=== PATIENT | male | born 1930 | race Caucasian/White ===

== ENCOUNTER 2016-11-26 14:57 | Inpatient (IN) | payer MEDICARE ==
[~2016-11-26] VITALS: Ht 175.3 cm; Wt 57.2 kg
[~2016-11-26 14:57] MED LIST: AMIO200T6 PO; CARV3.12 PO; HYDR-3651 PO; LISI-603 PO; PANT40TA2 PO; SIMV20TA2 PO; ZOLP10TA2 PO
--- NOTE | 2016-11-26 15:30 | NUR ---
Pt BIB [facility], reports pt had mechanical fall at home, fell on left side, possible left hip fx, some rotation; pt has hx of right side hip replacement x 1 year ago. Pt c/o 09/05 when still, 02/02 upon moving, PMS intact in left leg. Pt also stated he has had falls every 6-8 weeks for a "while." No other complaints, no distress noted.
[2016-11-26 15:51] LABS: BASOPHILS % (AUTO) 0.3 % (0.0-2.0); EOSINOPHILS % (AUTO) 0.4 % (0.0-7.0); HEMATOCRIT 38.7 % (40-50); HEMOGLOBIN 12.7 G/DL (14.0-18.0); LYMPHOCYTES # (AUTO) 1.4 K/uL (20.0-40.0); MEAN CORPUSCULAR HEMOGLOBIN 30.4 UUG (27.0-31.0); MEAN CORPUSCULAR HGB CONC 33 g/dL (32.0-37.0); MEAN CORPUSCULAR VOLUME 92.5 FL (82.0-92.0); MONOCYTES # (AUTO) 0.7 K/uL (2.0-10.0); MONOCYTES % (AUTO) 6.7 % (0.0-11.0); NEUTROPHILS # (AUTO) 7.8 K/uL (1.8-8.9); NEUTROPHILS % (AUTO) 78.6 % (38.5-71.5); PLATELET COUNT (AUTO) 241 K/UL (150-450); RED BLOOD CELL COUNT(AUTO) 4.18 MIL/UL (4.7-6.1); RED CELL DISTRIBUTION WIDTH 13.5 % (11.5-14.5); WHITE BLOOD COUNT (AUTO) 9.9 K/UL (4.0-11.2)
[2016-11-26 15:52] LABS: CALCIUM 9.4 mg/dL (8.5-10.1); POTASSIUM 4.5 mmol/L (3.5-5.1)
[2016-11-26 15:55] LABS: CREATININE 1.4 mg/dL (0.6-1.3)
[2016-11-26] MEDS ORDERED: MORPHINE SULFATE 4 MG/1 ML DISP.SYRIN IV ONE (16:15)
[2016-11-26] MEDS ORDERED: MORPHINE SULFATE 4 MG/1 ML DISP.SYRIN ONE (16:41)
--- NOTE | 2016-11-26 16:44 | NUR ---
Please call: Shania Colmenares, daughter [phone]
[2016-11-26] MEDS ORDERED: CARV3.12 PO (16:57)
[2016-11-26] MEDS ORDERED: SPIR25TA4 PO (16:57)
[2016-11-26] MEDS ORDERED: TAMS-3 PO (16:57)
[2016-11-26] MEDS ORDERED: SIMV40TA5 PO (16:57)
[2016-11-26] MEDS ORDERED: FURO-151 PO (16:57)
--- NOTE | 2016-11-26 17:30 | NUR ---
Pt reports that he has 2/10 pain, when not moving
[2016-11-26] MEDS ORDERED: ONDANSETRON 4 MG/2 ML VIAL IV PRN (18:00)
[2016-11-26] MEDS ORDERED: ACETAMINOPHEN 650 MG SUPP.RECT RC PRN (18:00)
--- NOTE | 2016-11-26 18:31 | NUR ---
Called report to JAVAD Yepez.
[2016-11-26 19:00] VITALS: BP 124/69
--- NOTE | 2016-11-26 19:36 | NUR ---
RECEIVED PT IN ROOM IN NO ACUTE DISTRESS, NEW ADMIT. A/OX4, VERY PLEASANT, NO S/S RESPIRATORY DISTRESS NOTED/REPORTED. PT ON ROOM AIR. STATES PAIN IS BETTER, 6/10 IN THE PAIN SCALE, TOLERABLE AT THIS TIME PER PT'S REPORT. RECEIVED PAIN MED IN ER. VS ARE STABLE. ALL NEEDS ATTENDED AT THIS TIME. TRAPEZE BAR IN PLACE. DVT PUMPS ON. MADE COMFORTABLE. ALL NEEDS ATTENDED AT THIS TIME. WILL CONTINUE TO MONITOR.
[2016-11-26] MEDS: TAMSULOSIN HCL 0.4 MG CAP.SR.24H PO SCH (21:00)
[2016-11-26] MEDS: IV D5/ 0.9% NACL 1,000 ML IV PRN (21:54)
[2016-11-26] MEDS: NORMAL SALINE FLUSH 10 ML DISP.SYRIN IV SCH (21:57)
[2016-11-26] MEDS: MORPHINE SULFATE 2 MG/1 ML DISP.SYRIN IV PRN (22:02)
--- NOTE | 2016-11-26 23:00 | NUR ---
PT REFUSED 2100 FLOMAX, PER PT HAS NOT BEEN TAKING IT FOR A FEW DAYS, CALLED MD RAGSDALE, MADE AWARE, AND CLARIFICATION ORDER FOR BUCKS TRACTION RECEIVED WELL. ORDER FOR BUCKS TRACTION TO LEFT LEG WITH 5 LBS WEIGHT RECEIVED, NOTED AND CARRIED OUT. WILL CONTINUE TO MONITOR.
--- NOTE | 2016-11-26 23:06 | NUR ---
PT SEEN BY MD RAGSDALE.
[2016-11-27 04:00] VITALS: BP 107/64
[2016-11-27] MEDS: MORPHINE SULFATE 2 MG/1 ML DISP.SYRIN IV PRN ×2 (05:35→14:01)
[2016-11-27] MEDS: NORMAL SALINE FLUSH 10 ML DISP.SYRIN IV SCH ×3 (05:36→21:33)
--- NOTE | 2016-11-27 05:52 | NUR ---
PT IN BED RESTING COMFORTABLY, SLEPT WELL. NO ACUTE DISTRESS PER SHIFT. C/O L HIP PAIN MANAGED WITH PRN MORPHINE GIVEN PRESCRIBED X2, WITH GOOD RELIEF. BUCKS TRACTION IN PLACE. DVT PUMPS ON. ALL NEEDS MET. NPO AFTER MIDNIGHT. ON TELE: SR, SINUS TACHY PACING ON THE MONITOR, HR 94 AT THIS TIME. CALL LIGHT IN REACH. SAFETY MAINTAINED.
[2016-11-27 07:03] LABS: BASOPHILS % (AUTO) 0.3 % (0.0-2.0); EOSINOPHILS % (AUTO) 0.2 % (0.0-7.0); HEMATOCRIT 34.3 % (40-50); HEMOGLOBIN 11.7 G/DL (14.0-18.0); LYMPHOCYTES # (AUTO) 1.7 K/uL (20.0-40.0); LYMPHOCYTES % (AUTO) 18.9 % (20.5-51.5); MEAN CORPUSCULAR HEMOGLOBIN 31.5 UUG (27.0-31.0); MEAN CORPUSCULAR HGB CONC 34 g/dL (32.0-37.0); MONOCYTES # (AUTO) 0.7 K/uL (2.0-10.0); MONOCYTES % (AUTO) 8.1 % (0.0-11.0); NEUTROPHILS # (AUTO) 6.5 K/uL (1.8-8.9); NEUTROPHILS % (AUTO) 72.5 % (38.5-71.5); PLATELET COUNT (AUTO) 193 K/UL (150-450); RED BLOOD CELL COUNT(AUTO) 3.73 MIL/UL (4.7-6.1); RED CELL DISTRIBUTION WIDTH 13.4 % (11.5-14.5); WHITE BLOOD COUNT (AUTO) 8.9 K/UL (4.0-11.2)
[2016-11-27 07:15] LABS: THYROID STIMULATING HORMONE 0.967 mIU/mL (0.358-3.740)
[2016-11-27 07:28] LABS: ALBUMIN 2.8 g/dL (3.4-5.0); BILIRUBIN,TOTAL 0.5 mg/dL (0.2-1.0); CALCIUM 8.9 mg/dL (8.5-10.1); CREATININE 1.3 mg/dL (0.6-1.3); PHOSPHOROUS 3.7 mg/dL (2.5-4.9); POTASSIUM 4.1 mmol/L (3.5-5.1); TOTAL PROTEIN, SERUM 7.1 g/dL (6.4-8.2)
[2016-11-27 07:43] LABS: MAGNESIUM 1.8 mg/dL (1.8-2.4)
[2016-11-27 07:51] LABS: *BILIRUBIN,URIN NEGATIVE (NEGATIVE); *BLOOD, URINE 2+ (NEGATIVE); *CLARITY,URINE SLIGHTLY CLOUDY (CLEAR); *COLOR,URINE YELLOW (YELLOW); *KETONES,URINE NEGATIVE (NEGATIVE); *PROTEIN,URINE 1+ (NEGATIVE); *UROBILINOGEN,URINE 0.2 E.U./dl (NORMAL); LEUKOCYTE ESTERASE ,URINE NEGATIVE (NEGATIVE); NITRITE, URINE NEGATIVE (NEGATIVE); PH,URINE 5.5 (5.0-8.0); UGLUCOSE NEGATIVE (NEGATIVE)
--- NOTE | 2016-11-27 08:00 | NUR ---
PATIENT RECEIVED IN BED BED RESTING, NO S/S OF DISTRESS NOTED. DENIED PAIN AT THE MOMENT. DR. BATRES CAME TO SEE PT, SURGERY CANCELLED FOR TODAY, IT WILL BE DONE TOMORROW AT 09:00 AM, OR AWARE. CALLED DAUGHTER TO NOTIFIED ABOUT THE CHANGED. CARDIAC DIET WAS ORDERED. NO S/S OF ASPIRATION. SAFETY AND COMFORT PROVIDED. WILL CONTINUE MONITORING.
[2016-11-27 08:01] LABS: BACTERIA,URINE FEW /HPF (NONE SEEN); MUCUS,URINE MODERATE /LPF (0-FEW); RBC,URINE TNTC /HPF (0-3); SQUAMOUS EPITHELIAL CELL,UR FEW /HPF (NONE SEEN); WBC,URINE 0-3 /HPF (0-3)
[2016-11-27] MEDS ORDERED: PANTOPRAZOLE SODIUM 40 MG VIAL IV SCH (09:00)
[2016-11-27 11:48] VITALS: BP 111/59
[2016-11-27] MEDS: IV D5/ 0.9% NACL 1,000 ML IV PRN (14:02)
[2016-11-27 15:16] VITALS: BP 134/70
--- NOTE | 2016-11-27 17:56 | NUR ---
DR. COLLIER NOTIFIED ME THAT PACEMAKER NEED TO BE CHANGE BEFORE SURGERY, IT IS ALSO STATED IN HIS NOTED. . CALLED [facility] AND NO ONE ANSWER, THEY STATED TODAY IN THE AFTERNOON THAT PACEMAKER WILL BE CHANGED. NO ONE HAVE CAME TODAY. REPORT WILL BE ENDORSE TO THE NEXT SHIFT NURSE
[2016-11-27] MEDS ORDERED: CARVEDILOL 3.125 MG TABLET PO SCH (18:00)
[2016-11-27 20:00] VITALS: BP 115/62
[2016-11-27] MEDS: SIMVASTATIN 20 MG TABLET PO SCH (20:13)
[2016-11-27] MEDS: TAMSULOSIN HCL 0.4 MG CAP.SR.24H PO SCH (20:16)
--- NOTE | 2016-11-27 20:50 | NUR ---
RECEIVED PT IN BED RESTING, NO ACUTE DISTRESS NOTED. EASILY AWOKEN TO NAME. DENIES PAIN AT THE MOMENT. BUCKS TRACTION IN PLACE. F/C IN PLACE, DRAINING YELLOW URINE. PT STATES HAS BEEN HAVING "CRAMPS AND HICCUPS'" FROM THE PROTONIX GIVEN IN THE AM. PER PT HAD THAT MEDICATION FOR "THE STOMACH BEFORE BREAKFAST BEFORE AND IT MAKES MY STOMACH HURT, I DON'T WANT IT." MD RAGSDALE IN NURSING STATION, MADE AWARE, WITH NEW ORDER OF DC PROTONIX, NOTED AND CARRIED OUT. WILL CONTINUE TO MONITOR.
[2016-11-28] VITALS (11 sets, daily range): BP systolic 84–136; BP diastolic 47–75
[2016-11-28] MEDS: IV D5/ 0.9% NACL 1,000 ML IV PRN (03:39)
[2016-11-28] MEDS: NORMAL SALINE FLUSH 10 ML DISP.SYRIN IV SCH ×3 (05:23→21:46)
--- NOTE | 2016-11-28 06:50 | NUR ---
PT SLEPT WELL PER SHIFT. KEPT NPO AFTER MIDNIGHT. NO C/O PAIN. NO ONE HAD CAME FOR PPM SETTING CHANGE, PER REPORT. CALLED [facility] [phone] THIS AM, SPOKE TO VINI, STATED AWARE OF PATIENT'S CASE AND STATED WILL BE HERE BEFORE NINE. CALLED MD BATRES, MADE AWARE. CONSENT SIGNED AND PLACED IN CHART. ALL NEEDS MET. KEPT CLEAN AND DRY. CALL LIGHT IN REACH AND SAFETY MAINTAINED. MD CHOI IN ROOM WITH PATIENT AT THIS TIME.
[2016-11-28 06:59] LABS: CALCIUM 8.7 mg/dL (8.5-10.1); CREATININE 1.1 mg/dL (0.6-1.3); MAGNESIUM 1.7 mg/dL (1.8-2.4); POTASSIUM 3.4 mmol/L (3.5-5.1)
[2016-11-28 07:09] LABS: BASOPHILS % (AUTO) 0.2 % (0.0-2.0); EOSINOPHILS # (AUTO) 0.1 K/uL (0.0-0.7); EOSINOPHILS % (AUTO) 0.7 % (0.0-7.0); HEMATOCRIT 31.8 % (40-50); HEMOGLOBIN 11.1 G/DL (14.0-18.0); LYMPHOCYTES # (AUTO) 1.2 K/uL (20.0-40.0); LYMPHOCYTES % (AUTO) 11.3 % (20.5-51.5); MEAN CORPUSCULAR HEMOGLOBIN 32.2 UUG (27.0-31.0); MEAN CORPUSCULAR HGB CONC 35 g/dL (32.0-37.0); MEAN CORPUSCULAR VOLUME 92.2 FL (82.0-92.0); MONOCYTES # (AUTO) 0.7 K/uL (2.0-10.0); MONOCYTES % (AUTO) 6.2 % (0.0-11.0); NEUTROPHILS # (AUTO) 8.8 K/uL (1.8-8.9); NEUTROPHILS % (AUTO) 81.6 % (38.5-71.5); PLATELET COUNT (AUTO) 181 K/UL (150-450); RED BLOOD CELL COUNT(AUTO) 3.45 MIL/UL (4.7-6.1); RED CELL DISTRIBUTION WIDTH 13.3 % (11.5-14.5); WHITE BLOOD COUNT (AUTO) 10.8 K/UL (4.0-11.2)
[2016-11-28] MEDS ORDERED: POLYMYXIN B SULFATE 500,000 UNITS, BACITRACIN 50,000 UNITS, NORMAL SALINE 20 ML MC ONE ×3 (07:45)
[2016-11-28] MEDS: CARVEDILOL 3.125 MG TABLET PO SCH ×2 (07:56→18:00)
--- NOTE | 2016-11-28 08:00 | NUR ---
awake alert, oriented, hard of hearing, kept npo for OR today, on room air, Tele SR with frequent pvcs, bucks tx 5 lbs on left leg, dvt pump on right leg, denies of pain at this time, explained plan of care- verbalized understanding, call [facility] levy, bed alarm on
--- NOTE | 2016-11-28 09:15 | NUR ---
taken to OR per bed, daughter with him
[2016-11-28] MEDS ORDERED: FENTANYL CITRATE 100 MCG/2 ML AMPUL ONE ×2 (09:49→13:24)
[2016-11-28] MEDS ORDERED: ROCURONIUM BROMIDE 50 MG/5 ML VIAL ONE (09:49)
[2016-11-28] MEDS ORDERED: PROPOFOL 200 MG/20 ML BOTTLE IV ONE (10:44)
[2016-11-28] MEDS ORDERED: ONDANSETRON 4 MG/2 ML VIAL IV ONE (10:44)
[2016-11-28] MEDS ORDERED: IV NORMAL SALINE 1000 ML BAG IV ONE (10:44)
[2016-11-28] MEDS ORDERED: EPHEDRINE SULFATE 50 MG/ML AMPUL MC ONE (10:44)
[2016-11-28] MEDS ORDERED: SEVOFLURANE 250 ML BOTTLE IH ONE (10:44)
[2016-11-28] MEDS ORDERED: CEFAZOLIN 1 G VIAL MC ONE (10:44)
[2016-11-28] MEDS ORDERED: DEXAMETHASONE SOD PHOSPHATE 4 MG INJ IV ONE (10:44)
[2016-11-28] MEDS ORDERED: KETOROLAC TROMETHAMINE 30 MG INJ IM ONE (10:44)
[2016-11-28] MEDS ORDERED: LIDOCAINE HCL 1% 20 ML VIAL MC ONE (10:44)
--- NOTE | 2016-11-28 14:30 | NUR ---
back from RR, awake alert and oriented. tele v paced 70, on 3l/nc with sat 100%, vs taken, left hip dsg dry and intact, ice pack on, palpable pedal pulse on left foot, bed alarm on, family at bedside, call lite within reach, will continue to monitor
[2016-11-28] MEDS: MAGNESIUM SULFATE/D5W 100 ML IV SCH ×2 (14:35→15:32)
--- NOTE | 2016-11-28 15:00 | NUR ---
vs monitored closely, remain stable, no bleeding noted, tele v paced 70, denies of pain, dozing on and off
[2016-11-28] MEDS ORDERED: KETOROLAC TROMETHAMINE 30 MG INJ IVP PRN (15:15)
--- NOTE | 2016-11-28 16:00 | NUR ---
incentive spirometry come- level 1000ml, still dozing on and off, vs monitored, juice provided
[2016-11-28] MEDS: POTASSIUM CHLORIDE 50 ML IV SCH ×2 (16:44→17:57)
[2016-11-28] MEDS: ASPIRIN EC 325 MG TABLET.DR PO SCH (17:57)
--- NOTE | 2016-11-28 18:00 | NUR ---
more awake, incontinent of small BM- washed and kept clean and dry, repositioned q2h, called daughter to bring dentures so he can have dinner- took juice and apple sauce, repositioned q 2h, left hip dsg dry and intact, abduction pillow in place, pulse on left foot palpable, toes warm and able to wiggle toes well, pt alert/oriented x 4, denies of left hip pain, c/o pain on iv site due to iv potassium ( 2nd bag) - changed to po.
[2016-11-28] MEDS: CEFAZOLIN 1 G in PREMIXED 1 EACH IV SCH (18:19)
[2016-11-28] MEDS ORDERED: POTASSIUM CHLORIDE 10 MEQ CAPSULE.SA PO ONE (18:30)
--- NOTE | 2016-11-28 18:48 | NUR ---
daughter brought dentures, pt eating dinner now, all needs attended and met, safety measures maintained, call light within reach
--- NOTE | 2016-11-28 19:15 | NUR ---
PATIENT ALERT ORIENTED, LEFT HIP DRESSING INTACT, NO BLEEDING NOTED, SKIN WARM AND DRY TO TOUCH, PULSE PALPABLE ON LEFT FOOT, PATE CATH PATENT, DRAINING WITH YELLOW COLOR URINE IN MODERATE AMOUNT, NO COMPLAIN OF PAIN AT THIS TIME. ABDUCTION PILLOW IN PLACE, USING SCENTIVE SPIROTEMER EVERY HOUR, NO S/S OF DISTRESS.
[2016-11-28] MEDS: TAMSULOSIN HCL 0.4 MG CAP.SR.24H PO SCH (20:51)
[2016-11-28] MEDS: SIMVASTATIN 20 MG TABLET PO SCH (20:51)
[2016-11-29 00:34] VITALS: BP 96/50
[2016-11-29] MEDS: IV D5/ 0.9% NACL 1,000 ML IV PRN (02:42)
[2016-11-29] MEDS: CEFAZOLIN 1 G in PREMIXED 1 EACH IV SCH (03:20)
[2016-11-29] MEDS: HYDROCODONE/APAP 5-325MG TABLET PO PRN (03:42)
[2016-11-29 04:00] VITALS: BP 92/46
--- NOTE | 2016-11-29 05:34 | NUR ---
PATIENT AWAKE, VERBALLY RESPONSIVE, COMPLAIN OF PAIN OF LEFT HIP, GIVEN PAIN MEDS WITH HELP AFTER ONE HOURS, PATE CATH PATENT DRAINING WITH YELLOW COLOR URINE IN MODERATE AMOUNT. ABDUCTION PILLOW IN PLACE, USES INCENTIVE SPIROMETER WHILE AWAKE, NO SOB NO CHEST PAIN NOTED, RYTHM IS PACING, TURN REPOSITION ON RIGHT SIDE, AND BACK ONLY, NO S/S DISTRESS.
[2016-11-29] MEDS: NORMAL SALINE FLUSH 10 ML DISP.SYRIN IV SCH ×2 (06:26→14:03)
[2016-11-29 07:14] LABS: ALBUMIN 2.2 g/dL (3.4-5.0); BASOPHILS % (AUTO) 0.1 % (0.0-2.0); BILIRUBIN,TOTAL 0.3 mg/dL (0.2-1.0); CALCIUM 8.2 mg/dL (8.5-10.1); CREATININE 1.2 mg/dL (0.6-1.3); EOSINOPHILS # (AUTO) 0.1 K/uL (0.0-0.7); EOSINOPHILS % (AUTO) 0.7 % (0.0-7.0); LYMPHOCYTES # (AUTO) 1.2 K/uL (20.0-40.0); LYMPHOCYTES % (AUTO) 13.8 % (20.5-51.5); MAGNESIUM 2.3 mg/dL (1.8-2.4); MEAN CORPUSCULAR HEMOGLOBIN 32.2 UUG (27.0-31.0); MEAN CORPUSCULAR HGB CONC 35 g/dL (32.0-37.0); MEAN CORPUSCULAR VOLUME 91.6 FL (82.0-92.0); MONOCYTES # (AUTO) 0.7 K/uL (2.0-10.0); MONOCYTES % (AUTO) 8.4 % (0.0-11.0); NEUTROPHILS # (AUTO) 6.8 K/uL (1.8-8.9); PHOSPHOROUS 2.1 mg/dL (2.5-4.9); PLATELET COUNT (AUTO) 161 K/UL (150-450); POTASSIUM 5.3 mmol/L (3.5-5.1); RED CELL DISTRIBUTION WIDTH 13.2 % (11.5-14.5); TOTAL PROTEIN, SERUM 5.8 g/dL (6.4-8.2); WHITE BLOOD COUNT (AUTO) 8.8 K/UL (4.0-11.2)
[2016-11-29 07:21] LABS: HEMOGLOBIN 9.2 G/DL (14.0-18.0); RED BLOOD CELL COUNT(AUTO) 2.86 MIL/UL (4.7-6.1)
[2016-11-29 07:22] LABS: HEMATOCRIT 26.2 % (40-50)
[2016-11-29] MEDS: CARVEDILOL 3.125 MG TABLET PO SCH ×2 (08:00→17:29)
[2016-11-29] MEDS: ASPIRIN EC 325 MG TABLET.DR PO SCH ×2 (08:25→17:22)
[2016-11-29 12:00] VITALS: BP 101/50
[2016-11-29 15:09] VITALS: BP 104/47
[2016-11-29] MEDS ORDERED: NEUTRA PHOS PACKET PO ONE (16:15)
--- NOTE | 2016-11-29 18:23 | NUR ---
PATIENT BEEN IN RESTING AND SLEEPING INTERMITTENTLY DURING THE DAY. NO S/S OF DISTRESS NOTED. DENIED PAIN DURING MY SHIFT. DRESSING STILL INTACT, NO REDNESS OR DRAINAGE NOTED AROUND THE WOUND. ICE WAS PROVIDED FOR COMFORT. ABDUCTION PILLOW IN PLACE. EDUCATE AND ENCOURAGE TO USE INCENTIVE SPIROMETER, VERBALIZED UNDERSTANDING AND RETURN DEMONSTRATION. IV INTACT. FC STILL INTACT AND DRAINING WELL. COOPERATIVE WITH INTERVENTIONS. CALL LIGHT WITHIN AT REACH. SAFETY AND COMFORT PROVIDED. WILL CONTINUE MONITORING.
--- NOTE | 2016-11-29 19:15 | NUR ---
ALERT ORIENTED, ABLE TO MAKE NEEDS KNOWN, LEFT HIP DRESSING INTACT, ABDUCTION PILLOW IN PLACE, REMINDED THE PATIENT TO USE THE INCENTIVE SPIROMETER, PATIENT USE SPIROMETER WHILE AWAKE, OXYGEN SAT WNL, ON ROOM AIR, NO SOB NO CHEST PAIN NOTED. PEDAL PULSE PRESENT ON BOTH LEGS, CONT TO MONITOR.
[2016-11-29 20:00] VITALS: BP 113/59
[2016-11-29] MEDS: SIMVASTATIN 20 MG TABLET PO SCH (20:02)
[2016-11-29] MEDS: TAMSULOSIN HCL 0.4 MG CAP.SR.24H PO SCH (20:03)
[2016-11-30] VITALS (8 sets, daily range): BP systolic 99–113; BP diastolic 45–60
[2016-11-30] MEDS: NORMAL SALINE FLUSH 10 ML DISP.SYRIN IV SCH ×4 (00:41→21:11)
--- NOTE | 2016-11-30 05:49 | NUR ---
PATIENT SLEPT MOST OF THE NIGHT, NO SOB NO CHEST PAIN NOTED, ABDUCTION PILLOW IN PLACE, BILATERAL PEDAL PULSE PRESENT, SKIN WARM AND DRY, DRESSING INTACT ON LEFT HIP, NO COMPLAINS OF PAIN AT THIS TIME. CONT TO MONITOR.
[2016-11-30 07:13] LABS: BASOPHILS % (AUTO) 0.5 % (0.0-2.0); EOSINOPHILS # (AUTO) 0.1 K/uL (0.0-0.7); EOSINOPHILS % (AUTO) 1.9 % (0.0-7.0); HEMATOCRIT 24.4 % (40-50); HEMOGLOBIN 8.6 G/DL (14.0-18.0); LYMPHOCYTES # (AUTO) 1.3 K/uL (20.0-40.0); LYMPHOCYTES % (AUTO) 17.5 % (20.5-51.5); MEAN CORPUSCULAR HEMOGLOBIN 32.2 UUG (27.0-31.0); MEAN CORPUSCULAR HGB CONC 35 g/dL (32.0-37.0); MONOCYTES # (AUTO) 0.6 K/uL (2.0-10.0); MONOCYTES % (AUTO) 8.5 % (0.0-11.0); NEUTROPHILS # (AUTO) 5.5 K/uL (1.8-8.9); NEUTROPHILS % (AUTO) 71.6 % (38.5-71.5); PLATELET COUNT (AUTO) 154 K/UL (150-450); RED BLOOD CELL COUNT(AUTO) 2.66 MIL/UL (4.7-6.1); RED CELL DISTRIBUTION WIDTH 13.2 % (11.5-14.5); WHITE BLOOD COUNT (AUTO) 7.5 K/UL (4.0-11.2)
[2016-11-30 07:55] LABS: CALCIUM 7.9 mg/dL (8.5-10.1); CREATININE 1.1 mg/dL (0.6-1.3); MAGNESIUM 1.7 mg/dL (1.8-2.4); POTASSIUM 4.4 mmol/L (3.5-5.1)
[2016-11-30] MEDS: ASPIRIN EC 325 MG TABLET.DR PO SCH ×2 (08:18→17:12)
[2016-11-30] MEDS: CARVEDILOL 3.125 MG TABLET PO SCH ×2 (08:20→17:12)
[2016-11-30] MEDS: KETOROLAC TROMETHAMINE 15 MG INJ IVP PRN ×2 (11:36→18:41)
[2016-11-30] MEDS ORDERED: MAGNESIUM OXIDE 400 MG TABLET PO ONE (11:45)
[2016-11-30] MEDS ORDERED: NEUTRA PHOS PACKET PO ONE (11:45)
[2016-11-30] MEDS ORDERED: BISACODYL 10 MG SUPP.RECT RC ONE (12:30)
[2016-11-30] MEDS ORDERED: BISACODYL 10 MG SUPP.RECT RC PRN (12:30)
--- NOTE | 2016-11-30 16:04 | NUR ---
Spoke to the patient's granddaughter, Shania Colmenares [ ], about his discharge plan and informed her that Dr. Antonio recommended for [facility] so that he is able to follow-up but she refused. She stated that she wants for him to go to [facility] because she was there in the past. She also stated that if need be, she will see another Ortho. Spoke to Shanae from [facility] [ ; [id number] [place] [address]] and she confirmed that they will be able to admit the patient once stable. Shania was very thankful. CM/SW will follow-up.
--- NOTE | 2016-11-30 18:00 | NUR ---
PATIENT WAS MEDICATED FOR SEVERE PAIN ON THE LEFT HIP,SURGICAL INCISION. ASSESSED AREA, NO REDNESS AND NOT TENDER TO TOUCH. PHYSICAL THERAPIST WORKED WITH PATIENT, PT NOTIFIED ME THAT PATIENT WAS LIGHT HEADED DURING ACTIVITY, AND WAS NOT ABLE TO AMBULATE. HE SAT AT THE CHAIR FOR 2 HOURS, PATIENT SEEMED EXHAUSTED. PATIENT C/O OF CONSTIPATION, SUPPOSITORY WAS ADMINISTERED. BLOOD COUNT HAS DROPPED, ONE UNIT OF PRBC WAS ORDERED BY DR LERNER. THE UNIT WAS ADMINISTERED, VERIFIED WITH BUTCH, CHARGE NURSE. NO S/S OF ACUTE DISTRESS OR REACTION DURING TRANSFUSION AT 1540, V/S WNL. PATIENT NOW IS SLEEPING, REFUSING TO EAT DINNER STATING HE IS TIRED AND WANTS TO SLEEP. UNIT OF BLOOD STILL INFUSING, WILL CONTINUE MONITORING FOR ANY REACTION, OR ACUTE DISTRESS. SAFETY AND COMFORT PROVIDED BY STAFF DURING THE DAY.
--- NOTE | 2016-11-30 19:15 | NUR ---
TRANSFUSION ENDED. NO S/S OF DISTRESS NOTED. V/S WNL. REPORT GIVEN TO RN.
--- NOTE | 2016-11-30 19:45 | NUR ---
PATIENT RECEIVED IN BED RESTING COMFORTABLY, VITAL SIGNS WNL. PT IS AOX2 BUT CONFUSED AND DISORIENTED AT TIMES. HEP LOCK IN RIGHT HAND, INTACT AND FLUSHED. DENIES ANY PHYSICAL DISCOMFORT AT THIS TIME. DRESSING NOTED TO LEFT HIP, INTACT. PATE CATHETER IN PLACE, URINE YELLOW AND COLOR. NO ACUTE DISTRESS NOTED. BED IN LOW AND LOCKED POSITION. SAFETY MEASURES MAINTAINED.
[2016-11-30] MEDS: TAMSULOSIN HCL 0.4 MG CAP.SR.24H PO SCH (21:11)
[2016-11-30] MEDS: SIMVASTATIN 20 MG TABLET PO SCH (21:11)
--- NOTE | 2016-11-30 23:00 | NUR ---
PT IN BED RESTING COMFORTABLY. TOLERATED MEDICATIONS WELL PO AT BEDTIME. DENIES ANY PAIN AT THIS TIME. TURNED IN BED EVERY 2 HOURS. PT REFUSED MEDICATION FOR SLEEP. NO ACUTE DISTRESS NOTED. WILL CONTINUE TO MONITOR FOR SAFETY.
--- NOTE | 2016-12-01 03:14 | NUR ---
PT SLEEPING IN BED AT THIS TIME. NO ACUTE DISTRESS NOTED. WILL CONTINUE TO MONITOR FOR SAFETY.
[2016-12-01 04:37] VITALS: BP 111/56
[2016-12-01] MEDS: NORMAL SALINE FLUSH 10 ML DISP.SYRIN IV SCH ×3 (06:04→21:23)
--- NOTE | 2016-12-01 06:17 | NUR ---
PATIENT AWAKE RESTING COMFORTABLY IN BED. HEP LOCK IN RIGHT HAND INTACT AND FLUSHED ORDERED. PATE CATHETER IS PATENT, OUTPUT IS 450CC THIS MORNING. NO ACUTE DISTRESS NOTED. SAFETY MEASURES MAINTAINED.
[2016-12-01 06:54] LABS: BASOPHILS % (AUTO) 0.4 % (0.0-2.0); EOSINOPHILS # (AUTO) 0.1 K/uL (0.0-0.7); EOSINOPHILS % (AUTO) 1.5 % (0.0-7.0); LYMPHOCYTES # (AUTO) 1.5 K/uL (20.0-40.0); LYMPHOCYTES % (AUTO) 18.5 % (20.5-51.5); MEAN CORPUSCULAR HEMOGLOBIN 31.4 UUG (27.0-31.0); MEAN CORPUSCULAR HGB CONC 34 g/dL (32.0-37.0); MEAN CORPUSCULAR VOLUME 91.2 FL (82.0-92.0); MONOCYTES # (AUTO) 0.6 K/uL (2.0-10.0); MONOCYTES % (AUTO) 7.9 % (0.0-11.0); NEUTROPHILS # (AUTO) 5.6 K/uL (1.8-8.9); NEUTROPHILS % (AUTO) 71.7 % (38.5-71.5); PLATELET COUNT (AUTO) 169 K/UL (150-450); RED CELL DISTRIBUTION WIDTH 13.8 % (11.5-14.5); WHITE BLOOD COUNT (AUTO) 7.8 K/UL (4.0-11.2)
[2016-12-01 07:10] LABS: HEMATOCRIT 29.2 % (40-50); HEMOGLOBIN 10.1 G/DL (14.0-18.0)
[2016-12-01 07:35] LABS: ALBUMIN 2.1 g/dL (3.4-5.0); BILIRUBIN,TOTAL 0.5 mg/dL (0.2-1.0); CALCIUM 8.3 mg/dL (8.5-10.1); CREATININE 0.9 mg/dL (0.6-1.3); MAGNESIUM 2.1 mg/dL (1.8-2.4); PHOSPHOROUS 2.9 mg/dL (2.5-4.9); POTASSIUM 4.4 mmol/L (3.5-5.1)
[2016-12-01] MEDS: CARVEDILOL 3.125 MG TABLET PO SCH ×2 (08:36→17:09)
[2016-12-01] MEDS: ASPIRIN EC 325 MG TABLET.DR PO SCH ×2 (08:36→17:08)
--- NOTE | 2016-12-01 10:00 | NUR ---
PATIENT SEEN BY THE PHYSICAL THERAPY FOR AMBULATION BUT PATIENT WAS ABLE TO STAND AND SEATED ON THE CHAIR NEXT TO HIS BED AND THEN ASSISTED BACK INTO BED.
[2016-12-01] MEDS ORDERED: TAMSULOSIN HCL 0.4 MG CAP.SR.24H PO ONE (10:16)
[2016-12-01 11:49] VITALS: BP 107/56
--- NOTE | 2016-12-01 12:00 | NUR ---
PATE CATHETER REMOVED,DRESSING CHANGED TO HIS LEFT HIP LEYLA ARE INTACT AT THIS TIME.URINAL GIVEN AND PATIENT INSTRUCTED ON THE USE AND HE EXPRESSED UNDERSTANDING.
--- NOTE | 2016-12-01 15:00 | NUR ---
PATIENT IS VOIDING USING THE URINAL ADEQUATE AMOUNT.
[2016-12-01] MEDS ORDERED: CALC-555 PO (15:48)
[2016-12-01] MEDS ORDERED: DOCU-25 PO (15:48)
[2016-12-01] MEDS ORDERED: BISA10SU12 RC (15:48)
[2016-12-01] MEDS ORDERED: FURO-152 PO (15:48)
[2016-12-01] MEDS ORDERED: SIMV10TA6 PO (15:48)
[2016-12-01] MEDS ORDERED: HYDR-3326 PO (15:48)
[2016-12-01] MEDS ORDERED: TAMS-3 PO (15:48)
[2016-12-01] MEDS ORDERED: ASPI-610 PO (15:48)
--- NOTE | 2016-12-01 16:02 | NUR ---
PATIENT IS FOR DISCHARGE TO [facility] TODAY FAMILY AWARE AWAITING FOR DR GORDON TO COMPLETE THE DISCHARGE IN THE [facility]
[2016-12-01 16:08] VITALS: BP 107/57
--- NOTE | 2016-12-01 17:57 | NUR ---
CALLED [facility] TO GIVE REPORT SPOKE WITH ARNALDO AND SHE STATED THAT THEY DO NOT HAVE A MALE BED AND WILL BE UNABLE TO TAKE THE PATIENT TODAY THE PADDED BOX SEWER AWARE AND HE CALLED AND SPOKE WITH DR IYER WHO WILL DECIDE WHAT NEXT AT THIS TIME.
--- NOTE | 2016-12-01 18:19 | NUR ---
[facility] IS UNABLE TO ADMIT PATIENT TODAY DUE TO UNAVAILABILITY OF BED TODAY SO I CALLED LLOYD AND NOTIFIED HER.
--- NOTE | 2016-12-01 20:00 | NUR ---
RECEIVED PATIENT AWAKE IN BED. A/OX3. DENIES PAIN OR DISCOMFORT. ON RA 97%. NO RESP. DISTRESS NOTED. VSS. DRESSING NOTED TO LEFT HIP, INTACT AND PATENT WITH LEYLA INTACT. ABDUCTION PILLOW IN PLACE. BED ALARM ON. CALL LIGHT IN REACH. ALL NEEDS ATTENDED. WILL CONTINUE TO MONITOR AND ASSESS.
[2016-12-01 20:20] VITALS: BP 111/54
[2016-12-01] MEDS: SIMVASTATIN 20 MG TABLET PO SCH (20:25)
[2016-12-01] MEDS: TAMSULOSIN HCL 0.4 MG CAP.SR.24H PO SCH (20:25)
[2016-12-01] MEDS: HYDROCODONE/APAP 5-325MG TABLET PO PRN (23:25)
--- NOTE | 2016-12-01 23:25 | NUR ---
PATIENT REPOSITIONED IN BED. C/O PAIN IN LEFT HIP. PATIENT GIVEN NORCO 1 TAB PO PRN FOR PAIN. VSS. WILL CONTINUE TO MONITOR. BED ALARM ON.
[2016-12-02 05:15] VITALS: BP 115/54
--- NOTE | 2016-12-02 06:14 | NUR ---
PATIENT ASLEEP IN BED. EASILY AROUSABLE. SLEPT WELL THROUGHOUT THE NIGHT. ABDUCTION PILLOW IN PLACE. DRESSING CLEAN, DRY AND INTACT. VSS. NO RESP. DISTRESS NOTED. NO S/S OF PAIN OR DISCOMFORT. NO FACIAL GRIMACE NOTED. BED ALARM ON. CALL LIGHT IN REACH. ALL NEEDS ATTENDED. WILL CONTINUE TO MONITOR.
[2016-12-02] MEDS: ASPIRIN EC 325 MG TABLET.DR PO SCH (08:15)
[2016-12-02] MEDS: CARVEDILOL 3.125 MG TABLET PO SCH (08:16)
[2016-12-02] MEDS ORDERED: Z GUARD REMEDY PASTE 57 GM TUBE TOP PRN (08:30)
--- NOTE | 2016-12-02 08:30 | NUR ---
SPOKE WITH PATIENT RE BOWEL MOVEMENT UNABLE TO RECALL WHEN HE HAD HIS LAST BM PRUNE JUICE GIVEN AND MD NOTIFIED.
[2016-12-02] MEDS ORDERED: BISACODYL 10 MG SUPP.RECT RC PRN (09:00)
[2016-12-02] MEDS ORDERED: Z GUARD REMEDY PASTE 57 GM TUBE TOP SCH (09:00)
--- NOTE | 2016-12-02 09:30 | NUR ---
PATIENT SEEN BY THE PHYSICAL THERAPIST WAS ABLE TO SIDE STEP BECAME ORTHOSTATIC WHILE UP ASSISTED BACK INTO BED AND PATIENT IS OKAY AT THE MOMENT THE PHYSICAL THERAPIST STATED WILL SEE THE PATIENT AGAIN LATER TODAY AND WILL CONTINUE TO OBSERVE.
[2016-12-02 12:09] VITALS: BP 105/55
--- NOTE | 2016-12-02 13:46 | NUR ---
PER THE MARKETING TECHNOLOGY SPECIALIST [facility] IS NOW READY TO ACCEPT PATIENT FOR ADMISSION SO I CALLED [facility] AND REPORT GIVEN TO SOLE FOR CONTINUING CARE PATIENT WILL BE PICKED UP AT 1430.PATIENT AWARE.
--- NOTE | 2016-12-02 15:15 | NUR ---
PATIENT DISCHARGED PICKED UP BY [facility] IN SATISFACTORY CONDITION WITH DISCHARGE INSTRUCTIONS AND REPORT GIVEN TO THE AMBULANCE TECHS PATIENT ALSO HAD A BOWEL MOVEMENT AFTER THE SUPPOSITORY ORDERED.
== END 2016-12-02 15:15 | DRG 469 ==
LOC: ER 15:02 → MED 18:43 → TELE 23:51 → MED 11-29 13:08
PROVIDERS: ADMIT Internal Medicine; ATTEND Internal Medicine
PROC: 0SRS0JZ Replacement of Left Hip Joint, Femoral Surface with Synthetic Substitute, Open Approach (ICD-10-PCS; principal; 2016-11-28 10:44)
PROC: 30233N1 Transfusion of Nonautologous Red Blood Cells into Peripheral Vein, Percutaneous Approach (ICD-10-PCS; 2016-11-30)
DX: S72.002A Fracture of unspecified part of neck of left femur, initial encounter for closed fracture (principal); I50.43 Acute on chronic combined systolic (congestive) and diastolic (congestive) heart failure; N17.0 Acute kidney failure with tubular necrosis; E43 Unspecified severe protein-calorie malnutrition; D68.59 Other primary thrombophilia; I42.9 Cardiomyopathy, unspecified; I44.2 Atrioventricular block, complete; Z68.1 Body mass index [BMI] 19.9 or less, adult; Y92.009 Unspecified place in unspecified non-institutional (private) residence as the place of occurrence of the external cause; Z95.0 Presence of cardiac pacemaker; W19.XXXA Unspecified fall, initial encounter; I11.0 Hypertensive heart disease with heart failure; E78.5 Hyperlipidemia, unspecified; D64.9 Anemia, unspecified; I25.10 Atherosclerotic heart disease of native coronary artery without angina pectoris; Z95.1 Presence of aortocoronary bypass graft; I48.91 Unspecified atrial fibrillation; E11.9 Type 2 diabetes mellitus without complications
CPT/HCPCS: 36415; 51702; 70030-TC; 71010; 72170; 73501; 73502; 73551; 83550; 83735; 84100; 84443; 85025; 85730; 86850; 86900; 86901; 86920; 93005; 93307; 97001; 97003; 97110; 97116; 97530; 97535; C9113; G0480-TC; J0690; J1100; J1885; J2270; J2405; J3010; J3475; J3480; J3490; J7030; J7042; J7050; P9016-BL; P9021